=== PATIENT | male | born 2000 | race Caucasian/White ===

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

== ENCOUNTER 2022-05-06 13:51 | Emergency (ER) | payer BC, SELFPAY ==
[2022-05-06 13:59] VITALS: BP 146/68; PULSE 72; RESP 17; TEMP 37.6; O2SAT 97
--- NOTE | 2022-05-06 14:35 | ED.GENADUL_ITS ---
Discharge Plan Disposition Patient Disposition: HOME Condition: Good Discharge Details Chief Complaint: Seizure Clinical Impression: Seizure Primary Care Provider: FernandaLocal ED Provider: Viktor Elaine Home Meds and New Rx's Prescriptions: No Action No Known Home Meds Discharge Instructions Instructions: Recurrent Seizures in Adults (ED) Additional Instructions: At this time [facility] does not recommend starting an antiepileptic medication currently. However they do recommend close follow-up with their neurology group. You should not drive, operate machinery, climb heights (such as a ladder), swim, or bathe alone or do anything else which could be dangerous if you would have another seizure. Please abide by this for the next 6 months or until cleared by a physician. If you notice any worsening of your symptoms, or any new symptoms such as vomiting, diarrhea, fever, chills, shortness of breath, chest pain, numbness, weakness, or fainting , please return immediately to the emergency department for reevaluation. Please follow up with your primary care provider as soon as possible for reassessment and reevaluation. As always, it was a pleasure participating in your medical care today. Stand Alone Forms: Work Release Discharge Data Discharge Date/Time-TO BE ENTERED AT DEPARTURE: 05/06/22 17:17 Medical Decision Making <Citlali Nuñez MD - Last Filed: 05/27/22 08:35> Concern for likely seizure, possible metabolic/electrolyte derangement, other. Exam/history at this time not consistent with arrhythmia, meningitis, acute CVA, acute emergent intracranial trauma. Plan for screening labs, will discuss with neurology at [facility] (patient states that he prefers to follow-up with [facility] neurology). Labs reviewed, WBC 9.32, anion gap 7.3, creatinine 0.7. [facility] transfer center called, neurology consult requested, awaiting callback. Patient signed out to Dr. Elaine at time of shift change with neurology consult, UA pending. Dr. Elaine's documentation: Case is signed out to me my colleague Dr. Citlali Nuñez. Please refer to HPI, physical exam, assessment and plan. I spoke with [facility] neurology Dr. Sosa, and upon review of the case with them they do not recommend initiating antiepileptic medication at this time. They do recommend close follow-up with the [facility] neurology outpatient clinic. They will contact him. I did provide the phone number for the patient to department. On reassessment the patient is doing very well. He shows no focal neurologic deficits. Patient will be discharged home with close department follow-up. I have extensively reviewed the treatment plan and discharge instructions with the patient. I have addressed all patient concerns at this time. The patient was made aware of what symptoms to monitor for that would warrant a return to the emergency department. Discussed the plan with the patient, they demonstrate verbal understanding and agreement with our assessment and plan at this time. The documentation in this chart was dictated using [employer] dictation software. Please excuse any dictation errors. Medical Records Medical records reviewed: Yes I reviewed the patient's medical records. Lab Data Lab results reviewed: Yes I reviewed the patient's lab results. <Viktor Elaine DO - Last Filed: 05/06/22 22:42> Concern for likely seizure, possible metabolic/electrolyte derangement, other. Exam/history at this time not consistent with arrhythmia, meningitis, acute CVA, acute emergent intracranial trauma. Plan for screening labs, will discuss with neurology at [facility] (patient states that he prefers to follow-up with [facility] neurology). Dr. Elaine's documentation: Case is signed out to me my colleague Dr. Citlali Nuñez. Please refer to HPI, physical exam, assessment and plan. I spoke with [facility] neurology Dr. Sosa, and upon review of the case with them they do not recommend initiating antiepileptic medication at this time. They do recommend close follow-up with the [facility] neurology outpatient clinic. They will contact him. I did provide the phone number for the patient to department. On reassessment the patient is doing very well. He shows no focal neurologic deficits. Patient will be discharged home with close department follow-up. I have extensively reviewed the treatment plan and discharge instructions with the patient. I have addressed all patient concerns at this time. The patient was made aware of what symptoms to monitor for that would warrant a return to the emergency department. Discussed the plan with the patient, they demonstrate verbal understanding and agreement with our assessment and plan at this time. The documentation in this chart was dictated using [employer] dictation software. Please excuse any dictation errors. HPI <Citlali Nuñez MD - Last Filed: 05/27/22 08:35> General Mode of arrival: ambulatory . Date/Time Provider Initiated Documentation: 05/06/22 14:04 . Limitations to Documentation: no limitations . Information obtained by: patient, RN notes reviewed and old records reviewed . HPI Narrative: Tim Freeman is a 21-year-old man with history of anxiety, depression, childhood seizures presenting to emergency room with seizure. Patient reports that between the ages of 5 and 9 he had absence seizures and took medication for that. At the time he was living in [place], and was treated by neurology at [facility]. Patient reports that neither he nor his mother remember what medication he was taking during that time. Patient reports that he stopped taking seizure medication 1 year after his last seizure, at age 10. Patient reports that he has been seizure-free since age 9 until yesterday. Patient reports that he was standing in the kitchen with his girlfriend yesterday when he had an episode that was similar to what he used to experience with his childhood seizures. Patient reports that he was standing up, and then has a period of time that he does not recall. When he regained consciousness he was still standing. His girlfriend told him that he had been standing, leaning against the counter, and unresponsive for 30 to 40 seconds. Patient was able to walk to his bedroom after the episode and eat and drink. He states that he felt essentially back to normal after 5 or 10 minutes. Patient reports that he has felt more tired than usual after the event yesterday and today, but otherwise feels at baseline. He reports that there were no known triggers: No recent trauma, no abnormal activities, no sleep deprivation. He uses marijuana occasionally, and drinks alcohol approximately once per year and has not drank in months. He denies pain, fever, cough, shortness of breath, vomiting, diarrhea, numbness, weakness. Did not fall to the ground during episode, did not bite his tongue, did not have urinary incontinence. Patient reports that he presented to the emergency department today as he is wondering whether or not he should be restarted on medication. Patient reports that he currently takes no medications. Related Data Home Medications Medication Instructions Recorded Confirmed Unknown [No Known Home Meds] 07/24/18 05/06/22 Allergies Allergy/AdvReac Type Severity Reaction Status Date / Time amoxicillin Allergy hives--had Unverified 05/06/22 14:05 [place] at time of med/RXN General Stated Complaint: Seizure GIO: 3 Review of Systems <Citlali Nuñez MD - Last Filed: 05/27/22 08:35> Narrative: Constitutional: denies fevers Eyes: denies eye pain ENT: denies ear pain, dental pain, sore throat Cardiovascular: denies chest pain Respiratory: denies SOB, cough GI: denies abdominal pain, vomiting, diarrhea : denies flank pain MSK: denies back pain, neck pain, arthralgias, myalgias Skin: denies rash Neuro: denies headaches, numbness, weakness, reports seizure-like episode as per HPI and PFSH <Citlali Nuñez MD - Last Filed: 05/27/22 08:35> All Active Problems (Updated 05/06/22 @ 17:02 by Viktor Elaine DO) Seizure (Acute) Medical History No significant past medical history Surgical History History of rhinoplasty Social History Smoking/Tobacco Use Status: Never Smoking risk assessment performed?: Yes Alcohol Intake: never Drug use: Occasionally Substance use type: marijuana Do you feel safe in your relationship?: Yes Exam <Citlali Nuñez MD - Last Filed: 05/27/22 08:35> Narrative Exam Narrative: Constitutional: well and [id number], pleasant, conversing normally HENT: head atraumatic/normocephalic/normal inspection, mucous membranes moist Eyes: conjunctiva normal, sclera normal, pupils 3mm b/l ERRLA, EOMI, no nystagmus Neck: no stridor, normal ROM, trachea midline Resp: normal work of breathing, speaking in full sentences Cardio: normal rate, normal rhythm Skin: warm, dry, normal color, no rash Neuro: alert, not altered, cranial nerves II through XII intact, motor 5 out of 5 throughout, normal tone Ext: Moving all extremities equally Psych: normal mood, normal affect, normal behavior Course <Citlali Nuñez MD - Last Filed: 05/27/22 08:35> Vital Signs Vital signs: Vital Signs Temperature 37.6 C 05/06/22 13:59 Pulse 72 05/06/22 13:59 Respiratory Rate 17 05/06/22 13:59 Blood Pressure 146/68 H 05/06/22 13:59 Pulse Oximetry 97 05/06/22 13:59 Temperature 37.6 C 05/06/22 13:59 Temperature Source Temporal Artery Scan 05/06/22 13:59 Pulse 72 05/06/22 13:59 Respiratory Rate 17 05/06/22 13:59 Respiratory Effort Non-Labored 05/06/22 14:06 Respiratory Depth Normal 05/06/22 14:06 Respiratory Pattern Normal 05/06/22 14:06 Blood Pressure 146/68 H 05/06/22 13:59 Blood Pressure Position Sitting 05/06/22 13:59 Pulse Oximetry 97 05/06/22 13:59 Oxygen Delivery Method Room Air 05/06/22 13:59 Oxygen Flow Rate 0 05/06/22 13:59 Pain Level 0 05/06/22 13:59 Sign Out <Citlali Nuñez MD - Last Filed: 05/27/22 08:35> Sign Out Data: Sign Out Comment: Patient signed out to Dr. Elaine pending UA, neurology consult. Last updated by Citlali Nuñez MD at 05/06/22 15:40
[2022-05-06 15:00] LABS: Abs Immature Grans 0.02 10^3/uL (0.0-0.06); Absolute Basophil Count 0.09 10^3/uL (0.0-0.2); Absolute Eosinophil Count 0.19 10^3/uL (0.0-0.7); Absolute Monocyte Count 0.53 10^3/uL (0.1-0.8); Absolute Neutrophil Count 4.49 10^3/uL (1.2-6.7); HCT 44.4 % (40.0-50.0); HGB 14.4 g/dL (13.5-17.5); Immature Grans % 0.2; Lymphocytes % 42.9; MCH 27.9 pg (27.0-33.0); MCHC 32.4 % (32.0-36.0); MCV 86 fL (80-95); Monocytes % 5.7; Neutrophils % 48.2; Platelet Count 246 10^3/uL (130-400); RBC 5.16 10^6/uL (4.36-5.78); RDW 12.8 % (11.8-14.1); RDW-SD 40.5 fL; WBC 9.32 10^3/uL (4.4-10.8)
[2022-05-06 15:14] LABS: ALT 54 U/L (16-63); AST 18 U/L (15-37); Albumin 4.1 g/dL (3.4-5.0); Alkaline Phosphatase 64 U/L (46-116); Anion Gap 7.3 mmol/L (3-11); BUN 18 mg/dL (7-18); Bilirubin, Total 0.5 mg/dL (0.2-1.0); CO2 29.7 mmol/L (21.0-32.0); CREATININE 0.7 mg/dL (0.70-1.30); Calcium 9.1 mg/dL (8.5-10.1); Chloride 105 mmol/L (98-107); Estimated GFR 133.61 (mL/min/1.73m2); Glucose 96 mg/dL (74-106); Potassium 4.1 mmol/L (3.5-5.1); Sodium 142 mmol/L (136-145); Total Protein 7.6 g/dL (6.4-8.2)
== END 2022-05-06 17:17 | disposition home or self-care (01) ==
PROVIDERS: Student in an Organized Health Care Education/Training Program; Emergency Provider Student in an Organized Health Care Education/Training Program
DX: R56.9 Unspecified convulsions (principal)
CPT/HCPCS: 36415; 80053; 99283; 83735; 85025